=== PATIENT | male | born 2005 | race Two or more races ===

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

== ENCOUNTER 2025-04-17 20:21 | Emergency (ER) | payer OTHER ==
[~2025-04-17] VITALS: Ht 185.4 cm; Wt 72.6 kg
[2025-04-17 21:38] VITALS: TEMP 98.2
[2025-04-17 21:40] VITALS: BP 144/78; O2SAT 97
== END 2025-04-17 22:06 | disposition home or self-care (01) ==
LOC: ER 20:25
DX: M25.562 Pain in left knee (principal); J45.909 Unspecified asthma, uncomplicated; W18.39XA Other fall on same level, initial encounter; Y93.02 Activity, running; Y92.89 Other specified places as the place of occurrence of the external cause; Y99.8 Other external cause status
CPT/HCPCS: 73564-TC